=== PATIENT | male | born 1950 | race Caucasian/White ===

== ENCOUNTER → 2018-11-22 14:31 | Outpatient (CLI) | payer BC, SELFPAY ==
[2018-11-22 14:50] LABS: Add Manual Diff / Slide Review NO; Basophils Absolute Auto 0 /uL (0-100); Basophils Percent Auto 0.6 % (0-2); Eosinophils Absolute Auto 200 /uL (0-450); Eosinophils Percent Auto 3.5 % (2-4); Hematocrit 41.6 % (41-53); Hemoglobin 14.5 g/dL (13.5-17.5); Lymphocytes Absolute Auto 1900 /uL (1100-4500); Lymphocytes Percent Auto 30.6 % (25-40); Mean Corpuscular HGB Conc 34.8 % (30-36); Mean Corpuscular Hemoglobin 30.9 PG (26-34); Mean Corpuscular Volume 88.7 fL (80-100); Monocytes Absolute Auto 500 /uL (0-900); Neutrophils Absolute Auto 3500 /uL (1500-7000); Neutrophils Percent Auto 57.3 % (50-75); Platelet Count 187 X10^3/uL (150-400); Red Blood Cell Count 4.69 X10^6/uL (4.5-5.9); Red Cell Distribution Width 13.8 % (11.6-14.8); White Blood Cell Count 6.2 X10^3/uL (4.5-11.0)
[2018-11-22 15:06] LABS: Alanine Aminotransferase 90 IU/L (21-72); Albumin 4.8 g/dL (3.5-5.0); Albumin Globulin Ratio 1.7 (1.0-2.8); Alkaline Phosphatase 97 U/L (38-126); Aspartate Aminotransferase 63 IU/L (17-59); Bilirubin Total 0.5 mg/dL (0.2-1.3); Blood Urea Nitrogen 18 mg/dL (9-20); Calcium 9.8 mg/dL (8.4-10.2); Carbon Dioxide 29 mmol/L (22-32); Chloride 101 mmol/L (98-107); Cholesterol 200 mg/dL (140-199); Estimated Glomerular Filt Rate > 60.0 mL/min (>60); Globulin 2.9 g/dL (1.7-4.1); Glucose 121 mg/dL (80-110); HDL Cholesterol 45 mg/dL (40-60); HEMOLYSIS 17 (0-50); Potassium 3.8 mmol/L (3.4-5.1); Sodium 139 mmol/L (137-145); Total Protein 7.7 g/dL (6.3-8.2); Triglycerides 514 mg/dL (35-150)
[2018-11-22 16:08] LABS: Vitamin D 25 Hydroxy (D3) 36.3 ng/mL (30.0-100.0)
[2018-11-22 16:14] LABS: Folate > 20.0 ng/mL (2.76-20.0)
== END ==
PROVIDERS: Visit Provider Student in an Organized Health Care Education/Training Program
DX: C85.90 Non-Hodgkin lymphoma, unspecified, unspecified site (principal); E55.9 Vitamin D deficiency, unspecified; E78.00 Pure hypercholesterolemia, unspecified; F10.20 Alcohol dependence, uncomplicated; I10 Essential (primary) hypertension
CPT/HCPCS: 36415; 80053; 80061; 82306; 82746; 85025

== ENCOUNTER → 2018-12-09 08:29 | Outpatient (CLI) | payer BC, SELFPAY ==
--- NOTE | 2018-12-09 08:30 | DI.US.S_ITS ---
PROCEDURE: US ABD AORTA ANEURYSM SCREEN INDICATIONS: ABDOMINAL AORTIC ANEURYSM SCREENING IN FORMER SMOKER TECHNIQUE: Real time scanning was performed of the aorta and iliac arteries, with image documentation. COMPARISON: None. FINDINGS: Aorta: Proximal aortic diameter measures 2.4 cm. Mid-aorta measures 2.2 cm. Distal aortic diameter is 2.1 cm. Iliac arteries: Right common iliac artery measures 1.6 cm. Left common iliac artery measures 1.4 cm. IMPRESSION: Borderline ectasia of the common iliac arteries however no followup is necessary by consensus guidelines. No evidence of abdominal aortic aneurysm. Dictated by: Kevin Quintana M.D. on 12/09/2018 at 10:56 Approved by: Kevin Quintana M.D. on 12/09/2018 at 10:57
== END ==
PROVIDERS: PCP Student in an Organized Health Care Education/Training Program; Visit Provider Student in an Organized Health Care Education/Training Program
DX: Z13.6 Encounter for screening for cardiovascular disorders (principal); Z87.891 Personal history of nicotine dependence
CPT/HCPCS: 76706

== ENCOUNTER → 2018-12-30 07:16 | Outpatient (CLI) | payer BC, SELFPAY ==
[2018-12-30 09:24] LABS: Cholesterol 140 mg/dL (140-199); HDL Cholesterol 48 mg/dL (40-60); LDL Cholesterol Calculated 66 mg/dL (<100); Triglycerides 130 mg/dL (35-150)
== END ==
PROVIDERS: PCP Student in an Organized Health Care Education/Training Program; Visit Provider Student in an Organized Health Care Education/Training Program
DX: E78.00 Pure hypercholesterolemia, unspecified (principal)
CPT/HCPCS: 36415; 80061

== ENCOUNTER → 2019-12-04 10:47 | Outpatient (CLI) | payer BC, SELFPAY ==
[2019-12-04 12:19] LABS: BUN Creatinine Ratio 31.4 (6-22); Blood Urea Nitrogen 22 mg/dL (9-20); Calcium 10.2 mg/dL (8.4-10.2); Carbon Dioxide 29 mmol/L (22-32); Chloride 100 mmol/L (98-107); Estimated Glomerular Filt Rate > 60.0 mL/min (>60); Glucose 112 mg/dL (80-110); HEMOLYSIS < 15 (0-50); Potassium 3.9 mmol/L (3.4-5.1); Sodium 139 mmol/L (137-145)
[2019-12-04 12:48] LABS: Prostate Specific Antigen Scrn 0.932 ng/mL (0.1-4.0)
== END ==
PROVIDERS: PCP Student in an Organized Health Care Education/Training Program; Referring Provider Student in an Organized Health Care Education/Training Program; Visit Provider Student in an Organized Health Care Education/Training Program
DX: Z12.5 Encounter for screening for malignant neoplasm of prostate (principal); I10 Essential (primary) hypertension
CPT/HCPCS: 36415; 80048; G0103

== ENCOUNTER → 2020-02-17 10:25 | Outpatient (CLI) | payer BC, SELFPAY ==
[2020-02-17 12:11] LABS: Add Manual Diff / Slide Review NO; Basophils Absolute Auto 100 /uL (0-100); Basophils Percent Auto 1.1 % (0-2); Eosinophils Absolute Auto 200 /uL (0-450); Eosinophils Percent Auto 2.6 % (2-4); Hematocrit 43.3 % (41-53); Lymphocytes Absolute Auto 1800 /uL (1100-4500); Lymphocytes Percent Auto 28.4 % (25-40); Mean Corpuscular HGB Conc 34.6 % (30-36); Mean Corpuscular Volume 89.6 fL (80-100); Monocytes Absolute Auto 500 /uL (0-900); Monocytes Percent Auto 8.5 % (3-14); Neutrophils Absolute Auto 3700 /uL (1500-7000); Neutrophils Percent Auto 59.4 % (50-75); Platelet Count 168 X10^3/uL (150-400); Red Blood Cell Count 4.83 X10^6/uL (4.5-5.9); Red Cell Distribution Width 13.3 % (11.6-14.8); White Blood Cell Count 6.2 X10^3/uL (4.5-11.0)
[2020-02-17 12:23] LABS: Alanine Aminotransferase 60 IU/L (<50); Albumin 4.7 g/dL (3.5-5.0); Albumin Globulin Ratio 1.5 (1.0-2.8); Alkaline Phosphatase 99 U/L (38-126); Aspartate Aminotransferase 48 IU/L (17-59); BUN Creatinine Ratio 33.9 (6-22); Bilirubin Total 0.8 mg/dL (0.2-1.3); Blood Urea Nitrogen 21 mg/dL (9-20); Calcium 9.8 mg/dL (8.4-10.2); Carbon Dioxide 31 mmol/L (22-32); Chloride 102 mmol/L (98-107); Estimated Glomerular Filt Rate > 60.0 mL/min (>60); Globulin 3.1 g/dL (1.7-4.1); Glucose 126 mg/dL (80-110); HEMOLYSIS 19 (0-50); Potassium 3.8 mmol/L (3.4-5.1); Sodium 140 mmol/L (137-145); Total Protein 7.8 g/dL (6.3-8.2)
== END ==
PROVIDERS: PCP Student in an Organized Health Care Education/Training Program; Referring Provider Physician Assistant; Visit Provider Physician Assistant
DX: C84.A0 Cutaneous T-cell lymphoma, unspecified, unspecified site (principal)
CPT/HCPCS: 36415; 80053; 85025

== ENCOUNTER → 2020-07-22 10:31 | Outpatient (CLI) | payer BC, SELFPAY ==
[2020-07-22 12:04] LABS: Alanine Aminotransferase 67 IU/L (<50); Albumin 4.6 g/dL (3.5-5.0); Albumin Globulin Ratio 1.6 (1.0-2.8); Alkaline Phosphatase 109 U/L (38-126); Aspartate Aminotransferase 51 IU/L (17-59); BUN Creatinine Ratio 31.7 (6-22); Bilirubin Total 0.7 mg/dL (0.2-1.3); Blood Urea Nitrogen 20 mg/dL (9-20); Calcium 9.5 mg/dL (8.4-10.2); Carbon Dioxide 31 mmol/L (22-32); Chloride 102 mmol/L (98-107); Estimated Glomerular Filt Rate > 60.0 mL/min (>60); Globulin 2.9 g/dL (1.7-4.1); Glucose 133 mg/dL (80-110); HEMOLYSIS < 15 (0-50); Potassium 3.7 mmol/L (3.4-5.1); Sodium 141 mmol/L (137-145); Total Protein 7.5 g/dL (6.3-8.2)
== END ==
PROVIDERS: PCP Student in an Organized Health Care Education/Training Program; Referring Provider Orthopaedic Surgery Hand Surgery; Visit Provider Orthopaedic Surgery Hand Surgery
DX: Z01.818 Encounter for other preprocedural examination (principal)
CPT/HCPCS: 36415; 80053

== ENCOUNTER → 2020-10-23 14:29 | Outpatient (CLI) | payer BC, SELFPAY ==
[2020-10-23 15:49] LABS: COVID19 -Nasal RAPID Negative (Negative)
== END ==
PROVIDERS: PCP Student in an Organized Health Care Education/Training Program; Visit Provider Physician Assistant
DX: Z20.822 Contact with and (suspected) exposure to COVID-19 (principal)
CPT/HCPCS: 87635

== ENCOUNTER → 2020-12-16 10:55 | Outpatient (CLI) | payer BC, SELFPAY ==
[2020-12-16 11:30] LABS: Hemoglobin A1C% w Est Avg Glu 5.5 % (4.0-6.0)
[2020-12-16 11:54] LABS: BUN Creatinine Ratio 32.8 (6-22); Blood Urea Nitrogen 20 mg/dL (9-20); Calcium 10.2 mg/dL (8.4-10.2); Carbon Dioxide 29 mmol/L (22-32); Chloride 102 mmol/L (98-107); Estimated Glomerular Filt Rate > 60.0 mL/min (>60); Glucose 110 mg/dL (80-110); HEMOLYSIS < 15 (0-50); Potassium 4.5 mmol/L (3.4-5.1); Sodium 141 mmol/L (137-145)
[2020-12-16 12:25] LABS: Prostate Specific Antigen Scrn 1.27 ng/mL (0.1-4.0)
[2020-12-16 12:43] LABS: Vitamin B12 489 pg/mL (239-931)
== END ==
PROVIDERS: PCP Student in an Organized Health Care Education/Training Program; Referring Provider Student in an Organized Health Care Education/Training Program; Visit Provider Student in an Organized Health Care Education/Training Program
DX: E66.9 Obesity, unspecified (principal); G62.9 Polyneuropathy, unspecified; I10 Essential (primary) hypertension; Z12.5 Encounter for screening for malignant neoplasm of prostate
CPT/HCPCS: 36415; 80048; 82607; 83036; G0103

== ENCOUNTER → 2021-05-09 09:59 | Outpatient (CLI) | payer BC, SELFPAY ==
[2021-05-09 11:05] LABS: COVID19 -Nasal RAPID Negative (Negative)
== END ==
PROVIDERS: PCP Family Medicine; Visit Provider Physician Assistant
DX: Z01.812 Encounter for preprocedural laboratory examination (principal); Z20.822 Contact with and (suspected) exposure to COVID-19
CPT/HCPCS: 87635

== ENCOUNTER → 2021-05-10 08:05 | Outpatient (CLI) | payer BC, SELFPAY ==
--- NOTE | 2021-05-10 09:01 | PM.TREADMILL ---
Cardiac Stress Test Report Referral & Results Date Patient Seen: 05/10/21 Time Patient Seen: 08:45 Requesting provider: Mukul Hathaway Indication: CAD Rest ECG: NSR Procedure Note: Today following both written and verbal informed consent, the patient was exercised according to a standard Osiel protocol. The patient exercised for a total of 5 minutes 18 seconds achieving a maximum heart rate of 169. Patient's maximum systolic blood pressure was 192. This was an estimated 7.0 METs. Normal hemodynamic response to exercise. No signs or symptoms of angina. Rare PACs/PVC with no clear increase on exercise. Severe exercise intolerance (FA I +30% on active scale). No ST changes. Impression: Low to intermediate probability for ischemia. Earl treadmill score of 5 is correlated with 97% 5 year survival rate from cardiac causes of mortality. Patient is likely de-conditioned. Please note: Actual ECG tracings can be found in the PACS system.
== END ==
PROVIDERS: PCP Family Medicine; Referring Provider Family Medicine; Visit Provider Family Medicine
DX: I25.10 Atherosclerotic heart disease of native coronary artery without angina pectoris (principal); I10 Essential (primary) hypertension; E78.00 Pure hypercholesterolemia, unspecified
CPT/HCPCS: 93016; 93017; 93018

== ENCOUNTER → 2021-08-31 08:16 | Outpatient (CLI) | payer BC, SELFPAY ==
--- NOTE | 2021-08-31 08:18 | DI.RAD.S_ITS ---
PROCEDURE: XR LUMBAR SPINE 2-3V INDICATIONS: progressive lbp TECHNIQUE: Two views of the lumbar spine were acquired. COMPARISON: None. FINDINGS: Bones: Five ifw-nwz-adjaxpc vertebrae are present. There may be trace retrolisthesis L4 on five but otherwise normal bony alignment. There is chronic appearing anterior height loss of L4 resulting in a wedge deformity. Slight scalloping of the superior endplates of L2 through L4. There is facet hypertrophy at the L5-S1 level. There is severe disc height loss at L5-S1 and moderate posterior disc height loss at L4-5. No vertebral body compression fractures. No suspicious bony lesions. Soft tissues: Overlying bowel gas pattern is normal. No suspicious soft tissue calcifications. IMPRESSION: 1. Moderate lumbar degenerative changes as described. This includes a chronic appearing anterior wedge compression fracture of L4, and severe disc height loss at L5-S1. Dictated by: Aubrie Su M.D. on 08/31/2021 at 9:20 Approved by: Aubrie Su M.D. on 08/31/2021 at 9:27
[2021-08-31 09:22] LABS: Add Manual Diff / Slide Review NO; Basophils Absolute Auto 0 /uL (0-100); Basophils Percent Auto 0.7 % (0-2); Eosinophils Absolute Auto 200 /uL (0-450); Eosinophils Percent Auto 3.3 % (2-4); Hematocrit 41.6 % (41-53); Hemoglobin 14.2 g/dL (13.5-17.5); Lymphocytes Absolute Auto 1900 /uL (1100-4500); Lymphocytes Percent Auto 33.6 % (25-40); Mean Corpuscular HGB Conc 34.2 % (30-36); Mean Corpuscular Hemoglobin 30.5 PG (26-34); Mean Corpuscular Volume 89.2 fL (80-100); Monocytes Absolute Auto 500 /uL (0-900); Neutrophils Absolute Auto 3000 /uL (1500-7000); Neutrophils Percent Auto 53.4 % (50-75); Platelet Count 180 X10^3/uL (150-400); Red Blood Cell Count 4.66 X10^6/uL (4.5-5.9); Red Cell Distribution Width 13.4 % (11.6-14.8); White Blood Cell Count 5.6 X10^3/uL (4.5-11.0)
[2021-08-31 09:47] LABS: Alkaline Phosphatase 94 U/L (38-126); Glucose 121 mg/dL (80-110); Potassium 4.3 mmol/L (3.4-5.1); Sodium 143 mmol/L (137-145)
[2021-08-31 10:13] LABS: TSH w/ Reflex to FT4 1.75 uIU/mL (0.47-4.68)
== END ==
PROVIDERS: PCP Family Medicine; Referring Provider Family Medicine; Visit Provider Family Medicine
DX: Z00.00 Encounter for general adult medical examination without abnormal findings (principal); R73.9 Hyperglycemia, unspecified
CPT/HCPCS: 36415; 72100; 80053; 80061; 83036; 84443; 85025

== ENCOUNTER → 2022-02-13 07:09 | Outpatient (CLI) | payer BC, SELFPAY ==
[2022-02-13 08:11] LABS: Hemoglobin A1C% w Est Avg Glu 6.1 % (4.0-6.0)
[2022-02-13 08:31] LABS: Alanine Aminotransferase 53 IU/L (<50); Albumin 4.4 g/dL (3.5-5.0); Albumin Globulin Ratio 1.8 (1.0-2.8); Alkaline Phosphatase 96 U/L (38-126); Aspartate Aminotransferase 39 IU/L (17-59); BUN Creatinine Ratio 26.2 (6-22); Bilirubin Total 0.7 mg/dL (0.2-1.3); Blood Urea Nitrogen 17 mg/dL (9-20); Carbon Dioxide 28 mmol/L (22-32); Chloride 104 mmol/L (98-107); Cholesterol 174 mg/dL (140-199); Estimated Glomerular Filt Rate > 60 mL/min (>60); Globulin 2.4 g/dL (1.7-4.1); Glucose 112 mg/dL (80-110); HDL Cholesterol 41 mg/dL (40-60); HEMOLYSIS < 15 (0-50); LDL Cholesterol Calculated 88 mg/dL (<100); Potassium 3.7 mmol/L (3.4-5.1); Sodium 141 mmol/L (137-145); Total Protein 6.8 g/dL (6.3-8.2); Triglycerides 227 mg/dL (35-150)
[2022-02-13 09:00] LABS: TSH w/ Reflex to FT4 3.15 uIU/mL (0.47-4.68)
== END ==
PROVIDERS: PCP Family Medicine; Referring Provider Family Medicine; Visit Provider Family Medicine
DX: E78.00 Pure hypercholesterolemia, unspecified (principal); I10 Essential (primary) hypertension; R73.9 Hyperglycemia, unspecified
CPT/HCPCS: 36415; 80053; 80061; 83036; 84443

== ENCOUNTER → 2022-09-06 07:35 | Outpatient (CLI) | payer BC, SELFPAY ==
[2022-09-06 09:24] LABS: Add Manual Diff / Slide Review NO; Basophils Absolute Auto 100 /uL (0-100); Basophils Percent Auto 0.7 % (0-2); Eosinophils Absolute Auto 200 /uL (0-450); Eosinophils Percent Auto 3.1 % (2-4); Hematocrit 43.4 % (41-53); Hemoglobin 14.9 g/dL (13.5-17.5); Lymphocytes Absolute Auto 2400 /uL (1100-4500); Lymphocytes Percent Auto 34.1 % (25-40); Mean Corpuscular HGB Conc 34.4 % (30-36); Mean Corpuscular Hemoglobin 29.8 PG (26-34); Mean Corpuscular Volume 86.8 fL (80-100); Monocytes Absolute Auto 600 /uL (0-900); Monocytes Percent Auto 7.9 % (3-14); Neutrophils Absolute Auto 3800 /uL (1500-7000); Neutrophils Percent Auto 54.2 % (50-75); Platelet Count 187 X10^3/uL (150-400); Red Cell Distribution Width 13.8 % (11.6-14.8); White Blood Cell Count 7.1 X10^3/uL (4.5-11.0)
[2022-09-06 09:30] LABS: Hemoglobin A1C% w Est Avg Glu 6.3 % (4.0-6.0)
[2022-09-06 09:39] LABS: Alanine Aminotransferase 60 IU/L (<50); Albumin 4.6 g/dL (3.5-5.0); Albumin Globulin Ratio 1.6 (1.0-2.8); Alkaline Phosphatase 101 U/L (38-126); Aspartate Aminotransferase 45 IU/L (17-59); BUN Creatinine Ratio 30.2 (6-22); Bilirubin Total 0.9 mg/dL (0.2-1.3); Blood Urea Nitrogen 19 mg/dL (9-20); Calcium 9.3 mg/dL (8.4-10.2); Carbon Dioxide 31 mmol/L (22-32); Chloride 99 mmol/L (98-107); Cholesterol 202 mg/dL (140-199); Estimated Glomerular Filt Rate > 60 mL/min (>60); Globulin 2.8 g/dL (1.7-4.1); Glucose 102 mg/dL (80-110); HDL Cholesterol 46 mg/dL (40-60); HEMOLYSIS 17 (0-50); LDL Cholesterol Calculated 100 mg/dL (<100); Sodium 139 mmol/L (137-145); Total Protein 7.4 g/dL (6.3-8.2); Triglycerides 280 mg/dL (35-150)
[2022-09-06 10:09] LABS: Prostate Specific Antigen Scrn 0.903 ng/mL (0.1-4.0)
== END ==
PROVIDERS: PCP Family Medicine; Referring Provider Family Medicine; Visit Provider Family Medicine
DX: E78.00 Pure hypercholesterolemia, unspecified (principal); I10 Essential (primary) hypertension; R73.9 Hyperglycemia, unspecified; Z12.5 Encounter for screening for malignant neoplasm of prostate
CPT/HCPCS: 36415; 80053; 80061; 83036; 85025; G0103

== ENCOUNTER 2023-01-02 08:13 | Day surgery (SDC) | payer BC, SELFPAY ==
--- NOTE | 2023-01-02 | PATH_ITS ---
[facility] Accession Number: [id number] No. of containers..02 Tissue . 01 Material submitted: . PART A: colon - DESCENDING COLON POLYP X2 PART B: colon - SIGMOID COLON POLYP X2 . 01 Diagnosis: A. Descending Colon, Polyp x2, Biopsies: Tubular adenomas. . B. Sigmoid Colon, Polyp x2, Biopsies: Hyperplastic polyps. MRV 01/04/2023 1920 Local . 01 Electronically signed: . Gladis Hahn MD, Pathologist NPI- [id number] . 01 Gross description: . Part A: DESCENDING COLON POLYP X2: Received in formalin are multiple fragment(s) of seth, soft tissue measuring 0.7 x 0.3 x 0.1 cm in aggregate submitted entirely in 1 cassette(s) Part B: SIGMOID COLON POLYP X2: Received in formalin are 3 fragment(s) of seth, soft tissue measuring 0.3 x 0.2 x 0.2 cm to 0.1 x 0.1 x 0.1 cm submitted entirely in 1 cassette(s) /CPE 01/03/2023 0656 Local . 01 Pathologist provided ICD-10: D12.4 . 01 CPT . 050876, [id number] Specimen Comment: A courtesy copy of this report has been sent to [phone] Performed at: 01 [facility] [address] [place] [address], [place], [place] [id number] MD Jeromy Malone MD Phone: [phone]
[2023-01-02 08:32] VITALS: BP 159/101; PULSE 101; RESP 16; TEMP 36.2; O2SAT 97; BMI 35.9
[2023-01-02] MEDS: LACTATED RINGERS 1,000 ML 200 ML IV (08:55)
--- NOTE | 2023-01-02 10:23 | P.HP_ITS ---
History of Present Illness History of Present Illness Date Patient Seen: 01/02/23 Time Patient Seen: 10:23 Chief complaint: [facility] [place] Narrative: 72-year-old man history of colonic polyps here for routine screening colonoscopy. Last colonoscopy was approximately 5 years ago. No personal or family history of intestinal malignancy. No new abdominal symptoms unintentional weight loss nausea vomiting blood rectum. [facility] Medical History Chest wall injury Chicken pox Colon polyps (~2006) Coronary artery disease Diverticular disease (~2006) Eczema (~2015) Fractures Headache Hemorrhoid (~2006) Hyperglycemia Hyperlipidemia Measles Mumps Shoulder pain (~2015) Upper extremity injury Well adult exam Surgical History Anesthesia History of hand surgery (~2014) History of shoulder surgery (~07/2016) History of surgery (~02/2016) History of tonsillectomy Status post hernia repair (~2005) Status post left elbow joint replacement Family History Brother Age: 68 Hyperlipidemia Sister Age: 73 Hyperlipidemia Hypertension Father Heart disease Social History household members: spouse Smoking Status: Former smoker Tobacco: How many years used: 20 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) ) alcohol intake: current substance use type: does not use Meds Home Medications and Allergies Home Medications Medication Instructions Recorded Confirmed Type aspirin 81 mg tablet,delayed ##0 12/04/16 09/08/22 History release multivitamin (Multiple Vitamins 1 tab PO QDAY ##0 12/04/16 09/08/22 History tablet) omega 7-jsd-lap-fish oil 1,000 mg ##0 12/04/16 09/08/22 History (120 mg-180 mg) capsule (Fish Oil) cholecalciferol (vitamin D3) PO 03/09/21 09/08/22 History niacin 1,000 mg tablet,extended 1,000 mg PO HS #90 tabs 03/09/21 09/08/22 Rx release atorvastatin 40 mg tablet 40 mg PO HS #90 tabs 03/01/22 09/08/22 Rx amoxicillin 500 mg capsule 500 mg PO BID #6 caps 06/22/22 09/08/22 Rx mupirocin 2 % topical ointment 1 applic topical BID PRN Skin 09/11/22 09/11/22 Rx infection #15 grams olmesartan 20 1 tab PO DAILY #90 tabs 09/11/22 09/11/22 Rx mg-hydrochlorothiazide 12.5 mg tablet (Benicar HCT) sodium,potassium,mag sulfates 17.5 See Rx Instructions PO .COMPLEX 10/12/22 Rx gram-3.13 gram-1.6 gram oral soln #354 mL (Suprep Bowel Prep Kit) Allergies Allergy/AdvReac Type Severity Reaction Status Date / Time fenofibrate Allergy Mild Rash Verified 09/08/22 08:27 codeine [CODEINE] AdvReac Intermediate nausea Verified 09/08/22 08:27 Exam Vital Signs (past 8 hours): - 01/02/23 08:32 Temperature 97.2 F L Pulse Rate 101 H Respiratory Rate 16 Blood Pressure 159/101 H Pulse Oximetry 97 Oxygen Delivery Method Room Air Oxygen Delivery Method Room Air Narrative Exam Narrative: General adult man alert oriented no acute distress Abdomen soft nontender nondistended Assessment & Plan Assessment & Plan narrative: The patient requires colorectal screening and colonoscopy is recommended. Technical details were discussed. Risks, benefits, alternatives explained. Risks including but not limited to myocardial infarction, aspiration, bleeding, pain, missed lesion, incomplete examination, need for further radiographic studies, colonic perforation, and need for major abdominal surgery were discussed. All questions were answered to their satisfaction, and they are in agreement with this plan.
--- NOTE | 2023-01-02 10:25 | PM.OP.COLON ---
Operative Date/Time/Diagnoses Date of procedure: 01/02/23 Time of procedure: 10:26 Pre-op diagnosis: Personal history of colonic polyps Post-op diagnosis: other (Colonic polyps x4) Procedure & Clinicians Study performed: Colonoscopy Same procedure as scheduled: Yes Indications: Personal history of colonic polyps Surgeon: Chalo Malik Procedure Notes Procedure in detail: The history and physical was performed/updated and the patient is ASA class is 2. The procedure was discussed in detail with the patient. Potential risks complications including infection, bleeding, missed diagnosis, perforation, need for surgery, and were explained. Their questions were answered and informed consent was obtained. Patient was brought to the procedure room and placed standard monitoring equipment. The patient's vital signs were monitored continuously throughout the entire procedure. Prior to starting time-out was performed. The patient was placed in the left lateral recumbent position. Procedural sedation was administered by anesthesia. Examination began with a thorough inspection of the perianal area there was no evidence of fissures, fistulae, external hemorrhoids or cutaneous malignancy. The colonoscopy scope was then placed into the anal canal and was advanced to the cecum, which was identified by the ileocecal valve, the appendiceal orifice and the confluence of the taenia. The scope was then slowly withdrawn examining colon thoroughly in all directions, irrigating it of any residual stool. Descending colon was notable for 2 polyps both less than 5 mm in removed with biopsy forceps. Within the sigmoid colon there were 2 colonic polyps both less than 5 mm in removed with biopsy forceps. The sigmoid colon was notable for extensive diverticulosis. The patient tolerated the procedure well. They will be discharged once criteria are met. The prep was of fair quality. The withdrawl time was 12 minutes. Specimen(s): other (Descending and sigmoid colonic polyps) Impression: Colonic polyps x4 Post-procedure Recommendations: High fiber diet Plan for aftercare: Follow-up is dependent on pathology findings Disposition: same day surgery
[2023-01-02 10:51] VITALS: BP 130/84; PULSE 85; RESP 20; TEMP 36.1; O2SAT 96
[2023-01-02 10:55] VITALS: BP 124/85; PULSE 87; RESP 22; O2SAT 98
[2023-01-02 11:00] VITALS: BP 149/95; PULSE 87; RESP 21; TEMP 36.8; O2SAT 97
[2023-01-02 11:02] VITALS: BP 135/92; PULSE 87; RESP 20; O2SAT 97
[2023-01-02 11:12] VITALS: TEMP 36.3
== END 2023-01-02 11:17 | disposition home or self-care (01) ==
PROVIDERS: PCP Family Medicine; Referring Provider Surgery; Visit Provider Surgery
PROC: 0DJD8ZZ Inspection of Lower Intestinal Tract, Via Natural or Artificial Opening Endoscopic (ICD-10-PCS; CPT 45378; principal; 2023-01-02 09:15)
DX: Z12.11 Encounter for screening for malignant neoplasm of colon (principal); Z86.010 Personal history of colon polyps; K57.30 Diverticulosis of large intestine without perforation or abscess without bleeding; D12.4 Benign neoplasm of descending colon
CPT/HCPCS: 45380; J2704; J3010

== ENCOUNTER → 2023-04-02 08:37 | Outpatient (CLI) | payer BC, SELFPAY ==
[2023-04-02 10:41] LABS: Alanine Aminotransferase 59 IU/L (<50); Albumin 4.2 g/dL (3.5-5.0); Albumin Globulin Ratio 1.5 (1.0-2.8); Alkaline Phosphatase 104 U/L (38-126); Aspartate Aminotransferase 42 IU/L (17-59); BUN Creatinine Ratio 29.7 (6-22); Bilirubin Total 0.7 mg/dL (0.2-1.3); Blood Urea Nitrogen 22 mg/dL (9-20); Calcium 9.5 mg/dL (8.4-10.2); Carbon Dioxide 33 mmol/L (22-32); Chloride 97 mmol/L (98-107); Cholesterol 187 mg/dL (140-199); Estimated Glomerular Filt Rate > 60 mL/min (>60); Globulin 2.8 g/dL (1.7-4.1); Glucose 102 mg/dL (80-110); HDL Cholesterol 48 mg/dL (40-60); HEMOLYSIS < 15 (0-50); LDL Cholesterol Calculated 91 mg/dL (<100); Potassium 3.7 mmol/L (3.4-5.1); Sodium 135 mmol/L (137-145); Triglycerides 240 mg/dL (35-150)
[2023-04-03 07:09] LABS: x Labcorp Estim. Avg Glu (eAG) 128 mg/dL (.); x Labcorp Hemoglobin A1c 6.1 % (4.8-5.6)
== END ==
PROVIDERS: PCP Family Medicine; Referring Provider Family Medicine; Visit Provider Family Medicine
DX: R73.9 Hyperglycemia, unspecified (principal); I10 Essential (primary) hypertension; E78.00 Pure hypercholesterolemia, unspecified
CPT/HCPCS: 36415; 80053; 80061; 83036

== ENCOUNTER → 2023-04-17 08:39 | Outpatient (CLI) | payer BC, SELFPAY ==
[2023-04-17 10:15] LABS: TSH w/ Reflex to FT4 2.09 uIU/mL (0.47-4.68)
[2023-04-17 10:34] LABS: Vitamin B12 336 pg/mL (239-931)
== END ==
PROVIDERS: PCP Family Medicine; Referring Provider Family Medicine; Visit Provider Family Medicine
DX: E53.8 Deficiency of other specified B group vitamins (principal); I10 Essential (primary) hypertension
CPT/HCPCS: 36415; 82607; 84443

== ENCOUNTER → 2023-09-06 09:00 | Outpatient (CLI) | payer BC, SELFPAY ==
[2023-09-06 10:00] LABS: Add Manual Diff / Slide Review NO; Basophils Absolute Auto 100 /uL (0-100); Eosinophils Absolute Auto 300 /uL (0-450); Eosinophils Percent Auto 3.3 % (2-4); Hematocrit 42.3 % (41-53); Hemoglobin 14.5 g/dL (13.5-17.5); Lymphocytes Absolute Auto 2100 /uL (1100-4500); Lymphocytes Percent Auto 26.1 % (25-40); Mean Corpuscular HGB Conc 34.2 % (30-36); Mean Corpuscular Hemoglobin 30.4 PG (26-34); Mean Corpuscular Volume 88.9 fL (80-100); Monocytes Absolute Auto 700 /uL (0-900); Monocytes Percent Auto 8.5 % (3-14); Neutrophils Absolute Auto 4800 /uL (1500-7000); Neutrophils Percent Auto 61.1 % (50-75); Platelet Count 217 X10^3/uL (150-400); Red Blood Cell Count 4.76 X10^6/uL (4.5-5.9); Red Cell Distribution Width 13.3 % (11.6-14.8); White Blood Cell Count 7.9 X10^3/uL (4.5-11.0)
[2023-09-06 10:14] LABS: Alanine Aminotransferase 49 IU/L (<50); Albumin 4.4 g/dL (3.5-5.0); Albumin Globulin Ratio 1.6 (1.0-2.8); Alkaline Phosphatase 111 U/L (38-126); Aspartate Aminotransferase 43 IU/L (17-59); BUN Creatinine Ratio 28.6 (6-22); Bilirubin Total 0.7 mg/dL (0.2-1.3); Blood Urea Nitrogen 20 mg/dL (9-20); Calcium 9.9 mg/dL (8.4-10.2); Carbon Dioxide 32 mmol/L (22-32); Chloride 98 mmol/L (98-107); Cholesterol 197 mg/dL (140-199); Estimated Glomerular Filt Rate > 60 mL/min (>60); Globulin 2.8 g/dL (1.7-4.1); Glucose 112 mg/dL (80-110); HDL Cholesterol 45 mg/dL (40-60); HEMOLYSIS < 15 (0-50); LDL Cholesterol Calculated 94 mg/dL (<100); Sodium 137 mmol/L (137-145); Total Protein 7.2 g/dL (6.3-8.2); Triglycerides 291 mg/dL (35-150)
[2023-09-06 10:23] LABS: Hemoglobin A1C% w Est Avg Glu 6.3 % (4.0-6.0)
== END ==
PROVIDERS: PCP Family Medicine; Referring Provider Family Medicine; Visit Provider Family Medicine
DX: Z00.00 Encounter for general adult medical examination without abnormal findings (principal); R73.9 Hyperglycemia, unspecified; E66.01 Morbid (severe) obesity due to excess calories; I10 Essential (primary) hypertension; E78.00 Pure hypercholesterolemia, unspecified; C85.90 Non-Hodgkin lymphoma, unspecified, unspecified site
CPT/HCPCS: 36415; 80053; 80061; 83036; 85025

== ENCOUNTER → 2023-09-26 08:37 | Outpatient (CLI) | payer BC, SELFPAY ==
--- NOTE | 2023-09-26 08:38 | DI.US.S_ITS ---
PROCEDURE: US SCROTUM INDICATIONS: RIGHT SCROTAL LUMP TECHNIQUE: Real-time scanning was performed of the scrotum and testicles, with image documentation. Color and pulse Doppler interrogation was performed of both testicles. COMPARISON: None. FINDINGS: Right: Testicle is normal in size at 4.9 x 2.5 cm, and homogenous in echotexture. Epididymis is normal in overall size and morphology. No varicoceles. Small hydrocele. Overlying scrotal skin is normal in thickness. Small epididymal head cyst measuring 10 x 7 mm. Left: Testicle is normal in size at 4.8 x 2.4 x 3.1 cm, and homogeneous in echotexture. Epididymis is normal in overall size and morphology. No hydrocele or varicoceles. Overlying scrotal skin is normal in thickness. Doppler: Color and pulse Doppler demonstrate normal and symmetric arterial flow in both testicles. IMPRESSION: Small right epididymal head cyst. Small right hydrocele. No acute abnormalities. No intratesticular masses. Dictated by: Maxx Kuhn M.D. on 09/26/2023 at 12:47 Approved by: Maxx Kuhn M.D. on 09/26/2023 at 12:48
== END ==
PROVIDERS: PCP Family Medicine; Referring Provider Family Medicine; Visit Provider Family Medicine
DX: N50.3 Cyst of epididymis (principal); N43.3 Hydrocele, unspecified; N50.819 Testicular pain, unspecified
CPT/HCPCS: 76870; 93975

== ENCOUNTER → 2024-05-07 07:03 | Outpatient (CLI) | payer BC, SELFPAY ==
[2024-05-07 08:12] LABS: Hemoglobin A1C% w Est Avg Glu 5.8 % (4.0-6.0)
[2024-05-07 08:19] LABS: Alanine Aminotransferase 56 IU/L (<50); Albumin 4.3 g/dL (3.5-5.0); Alkaline Phosphatase 106 U/L (38-126); Aspartate Aminotransferase 37 IU/L (17-59); BUN Creatinine Ratio 25.3 (6-22); Bilirubin Total 0.8 mg/dL (0.2-1.3); Blood Urea Nitrogen 21 mg/dL (9-20); Calcium 9.5 mg/dL (8.4-10.2); Carbon Dioxide 32 mmol/L (22-32); Chloride 100 mmol/L (98-107); Estimated Glomerular Filt Rate > 60 mL/min (>60); Globulin 2.2 g/dL (1.7-4.1); Glucose 111 mg/dL (80-110); HEMOLYSIS < 15 (0-50); Potassium 3.2 mmol/L (3.4-5.1); Sodium 139 mmol/L (137-145); Total Protein 6.5 g/dL (6.3-8.2)
[2024-05-07 08:51] LABS: Prostate Specific Antigen Scrn 1.15 ng/mL (0.1-4.0)
== END ==
PROVIDERS: PCP Family Medicine; Referring Provider Family Medicine; Visit Provider Family Medicine
DX: Z12.5 Encounter for screening for malignant neoplasm of prostate (principal); R73.9 Hyperglycemia, unspecified; C85.90 Non-Hodgkin lymphoma, unspecified, unspecified site; I10 Essential (primary) hypertension; E78.00 Pure hypercholesterolemia, unspecified
CPT/HCPCS: 36415; 80053; 83036; G0103

== ENCOUNTER → 2024-05-09 17:03 | Outpatient (CLI) | payer BC, SELFPAY ==
--- NOTE | 2024-05-09 17:05 | DI.RAD.S_ITS ---
PROCEDURE: XR KNEE RT 3V INDICATIONS: R knee pain TECHNIQUE: 3 views of the knee were acquired. COMPARISON: None. FINDINGS: Bones: No fractures or dislocations. Tricompartment osteophytes. At least moderate medial compartment joint space loss and moderate to severe lateral compartment joint space loss. Presumed intra-articular bodies. No suspicious bony lesions. Soft tissues: No joint effusion. No suspicious soft tissue calcifications. IMPRESSION: Degenerative change. No acute bony abnormality. Dictated by: Avtar Hunt M.D. on 05/11/2024 at 14:21 Approved by: Avtar Hunt M.D. on 05/11/2024 at 14:22
== END ==
LOC: RAD 17:04
PROVIDERS: PCP Family Medicine; Referring Provider Family Medicine; Visit Provider Family Medicine
DX: M25.561 Pain in right knee (principal)
CPT/HCPCS: 73562

== ENCOUNTER → 2024-10-24 08:23 | Outpatient (CLI) | payer BC, SELFPAY ==
[2024-10-24 09:04] LABS: Hemoglobin A1C% w Est Avg Glu 5.6 % (4.0-6.0)
[2024-10-24 09:09] LABS: Alanine Aminotransferase 64 IU/L (<50); Albumin 4.7 g/dL (3.5-5.0); Albumin Globulin Ratio 1.9 (1.0-2.8); Alkaline Phosphatase 99 U/L (38-126); Aspartate Aminotransferase 49 IU/L (17-59); Blood Urea Nitrogen 16 mg/dL (9-20); Calcium 9.8 mg/dL (8.4-10.2); Carbon Dioxide 30 mmol/L (22-32); Chloride 99 mmol/L (98-107); Cholesterol 186 mg/dL (140-199); Estimated Glomerular Filt Rate > 60 mL/min (>60); Globulin 2.5 g/dL (1.7-4.1); Glucose 108 mg/dL (80-110); HDL Cholesterol 47 mg/dL (40-60); HEMOLYSIS < 15 (0-50); LDL Cholesterol Calculated 97 mg/dL (<100); Potassium 3.8 mmol/L (3.4-5.1); Sodium 137 mmol/L (137-145); Total Protein 7.2 g/dL (6.3-8.2); Triglycerides 210 mg/dL (35-150)
== END ==
PROVIDERS: PCP Family Medicine; Referring Provider Family Medicine; Visit Provider Family Medicine
DX: R73.9 Hyperglycemia, unspecified (principal); I10 Essential (primary) hypertension; I25.10 Atherosclerotic heart disease of native coronary artery without angina pectoris
CPT/HCPCS: 36415; 80053; 80061; 83036

== ENCOUNTER → 2025-08-24 09:12 | Outpatient (CLI) | payer BC, SELFPAY ==
[2025-08-24 09:51] LABS: Add Manual Diff / Slide Review NO; Hematocrit 42.6 % (41-53); Hemoglobin 14.8 g/dL (13.5-17.5); Lymphocytes Absolute Auto 1800 /uL (1100-4500); Mean Corpuscular HGB Conc 34.8 % (30-36); Mean Corpuscular Hemoglobin 30.7 PG (26-34); Mean Corpuscular Volume 88.2 fL (80-100); Platelet Count 168 X10^3/uL (150-400)
[2025-08-24 10:00] LABS: Hemoglobin A1C% w Est Avg Glu 5.6 % (4.0-6.0)
[2025-08-24 10:14] LABS: Alanine Aminotransferase 49 IU/L (<50); Albumin 4.6 g/dL (3.5-5.0); Albumin Globulin Ratio 1.8 (1.0-2.8); Alkaline Phosphatase 100 U/L (38-126); Blood Urea Nitrogen 19 mg/dL (9-20); Calcium 9.5 mg/dL (8.4-10.2); Carbon Dioxide 29 mmol/L (22-32); Chloride 100 mmol/L (98-107); Cholesterol 185 mg/dL (140-199); Estimated Glomerular Filt Rate > 60 mL/min (>60); Globulin 2.6 g/dL (1.7-4.1); Glucose 111 mg/dL (70-99); HDL Cholesterol 57 mg/dL (40-60); HEMOLYSIS < 15 (0-50); Potassium 3.7 mmol/L (3.4-5.1); Sodium 137 mmol/L (137-145); Total Protein 7.2 g/dL (6.3-8.2); Triglycerides 177 mg/dL (35-150)
== END ==
PROVIDERS: PCP Family Medicine; Referring Provider Family Medicine; Visit Provider Family Medicine
DX: E11.9 Type 2 diabetes mellitus without complications (principal); R73.9 Hyperglycemia, unspecified; I25.10 Atherosclerotic heart disease of native coronary artery without angina pectoris; E66.01 Morbid (severe) obesity due to excess calories; I10 Essential (primary) hypertension; E78.00 Pure hypercholesterolemia, unspecified
CPT/HCPCS: 36415; 80053; 80061; 83036; 85025; G0103